=== PATIENT | female | born 1945 | race Caucasian/White ===

== ENCOUNTER 2024-01-30 09:17 | Emergency (ER) | payer MEDICARE, SELFPAY ==
[2024-01-30 09:20] VITALS: BP 172/70
--- NOTE | 2024-01-30 10:53 | ED.GENMED ---
History of Present Illness
General
Chief Complaint: Dizziness
Source: patient and spouse
Time Seen by Provider: 01/30/24 10:38
Travel History
Have you had any contact with someone who has COVID-19?: No
Do you have any symptoms of coronavirus? Fever > 100 degrees, chills, cough, shortness of breath, sore throat, loss of taste or smell, muscle aches, or headache?: No
History of Present Illness
History of Present Illness:
This patient is a 78-year-old female presents emergency department after an episode that started yesterday afternoon. She describes sitting down on the bed and experiencing a dizzy spell described as 'spinning' lasting about 3 to 4 minutes and then
resolving completely. She felt a little diaphoretic with this, but otherwise no associated symptoms. Then, shortly after, she noted that the left mid face area felt 'strange'. She says she can still feel in that area but it just feels different
leg decreased sensation. This continues today which prompted her visit here. She denies associated headache, double vision, blurry vision, change in vision, clumsiness, chest pain, shortness of breath, abdominal pain, nausea, vomiting, focal
weakness, difficulty walking, or other complaints. Of note, as patient was exiting the car to come to the emergency department she again had a short-lived episode of dizziness. The 'strange' sensation in the left mid face persists
Past History
Past History
ED Past Medical History: Other (Kidney stones)
ED Past Surgical History: Appendectomy
Social History
Tobacco: Non-smoker
Alcohol: Occasional
Drug: None
Personal:
Living: with family
Phy Exam
Physical Exam
Physical Exam:
GENERAL: Alert , in no apparent distress
EYE: pupils equal and reactive, no photophobia, no nystagmus, EOMI, visual tavares intact
NECK: Supple, no significant adenopathy.
ENT: o/p clr, mmm.
CARDIAC: Regular rate and rhythm .
LUNGS: Clear breath sounds bilaterally, no acute respiratory distress, no wheezes/rales/rhonchi
ABDOMEN: Soft, without focal tenderness, no r/g, no cvat
NEUROLOGICAL: Alert and oriented, no focal neuro deficits, gait normal, [id number]-[id number] normal, motor 5 out of 5, sensory intact to light touch
SKIN: Warm and dry, skin intact.
MUSCULOSKELETAL: No edema, well perfused.
PSYCH: Normal and appropriate interaction.
Course
Orders/Labs/Results
Orders:
Orders
01/30/24 10:52
Electrocardiogram (*1) Stat
Reason for Study: Other
Other Reason for Exam: neuro symptoms
Cardiac Monitoring- Treatment ONCE
EKG- Treatment ONCE
01/30/24 11:22
Cardiovascular Evaluation Urgent
Complete Blood Count/No Diff Urgent
Comprehensive Metabolic Panel Urgent
Ferritin Urgent
Comment: ADD ON
Folate Urgent
Comment: ADD ON
Glycohemoglobin (HgbA1c) Urgent
TSH Reflex To Free T4 Urgent
Comment: ADD ON
Vitamin B12 Urgent
Comment: ADD ON
01/30/24 11:31
Add On- LAB Routine
Tests Added?: folate, ferritin, TSH reflex, B12, lipid panel, hbA1c
01/30/24 11:47
[facility] [place] [facility] Urgent
Reason For Exam: vertigo
Recent pill cam endoscopy?: No
MRI Brain [MR Brain Without Contrast] Urgent
Comment:
Reason For Exam: vertigo
Recent pill cam endoscopy?: No
01/30/24 12:47
Aspirin 325 mg PO NOW STA
Abnormal Lab Results
01/30/24
11:22
MCHC 32.3 L g/dL
(33.0-37.0)
MPV 11.0 H fL
(7.4-10.4)
BUN 25 H mg/dl
(7-17)
Total Cholesterol 290 H mg/dl
(50-199)
01/30/24 11:22
01/30/24 11:22
Vital Signs
Initial and Last Documented VS:
Initial Vital Signs
Temp Pulse Resp BP Pulse Ox
97.7 F 94 18 172/70 100
01/30/24 09:20 01/30/24 09:20 01/30/24 09:20 01/30/24 09:20 01/30/24 09:20
Last Documented Vital Signs
Temp Pulse Resp BP Pulse Ox
97.7 F 69 15 138/62 100
01/30/24 09:20 01/30/24 12:45 01/30/24 12:45 01/30/24 12:00 01/30/24 11:30
*Critical Care Note
Total Time (30-74mins, 75-104mins- exclusive of procedures): Not Applicable
Update Note
Update Note:
Patient presents to the Emergency Department with ____dizziness and strange feeling of mid face area
Number and Complexity of Problems Addressed at the Encounter
� Chronic conditions affecting care:
� Acute Exacerbation and/or Progression of Chronic Illness:
� Differential Diagnosis includes: But not limited to TIA, CVA, electrolyte disturbance, etc.
Amount and/or Complexity of Data to be Reviewed and Analyzed
� I performed an independent evaluation of and my interpretation is:
EKG: Read by me, normal sinus rhythm, LAD, no acute ischemia
CT: Deferred/canceled as we are now ordering an MRI
Xrays:
Laboratory Studies: Generally unremarkable
Other:There is no acute intracranial process.
Age-appropriate mild volume loss and mild leukoaraiosis.
Please see accompanying MRA report.
Disc bulging at C4-5 and C5-6 abuts the ventral surface of the cord. Consider nonurgent cervical spine MRI to evaluate for any cord compression or nerve root impingement.
Thea Tavares
ID [id number]
Approximately 50% stenosis of the horizontal portion of the left ICA proximally, at the turn from the cervical ICA, asymmetric from the right.
No other focal stenosis or aneurysm. No filling defect Brain MRI (-) acute
� Review of other/old records reveals:
� Clinical information was obtained by an independent historian:
� Prescriptions/Medications Considered but not given:
� Further testing considered but not performed:
Risk of Complications and/or Morbidity or Mortality of Patient Management
� Social determinants of health affecting care:
� Discussion with other providers (PCP, Hospitalists, Consultants, etc):
� Escalation of care including admission/observation vs risk of discharge considered: Patient seen by Dr. Welsh in consult at my request, he agrees with my concerns and recommends an MRI to further assess particularly posterior
circulation. Patient remained stable, is obviously not a IAT/TNK candidate given NIH score, time of onset, etc. I initially discussed with hospitalist for admission/continued observation pending MRI, but fortunately they were able to accommodate
patient and get an MRI. See report as above. As per neurology, patient not a candidate for admission/observation or chronic aspirin therapy, recommends outpatient vestibular PT and follow-up. Given the 50% ICA occlusion noted, I also recommended
follow-up with vascular although on a more routine basis as it is not an urgency. Long discussion with patient and , aware of importance of follow-up and reasons return to the ER.
ED Attending Note
-
Portions of this chart may have been created with voice recognition software.� Occasional wrong word or��sound alike� substitutions may have occurred due to the inherent limitations of voice recognition software.
Discharge Plan
Departure
Patient Disposition: Home (Routine Discharge)
Date of Disposition: 01/30/24
Time of Disposition: 12:47
Patient with high blood pressure during this ER visit?: Yes
Condition: Good
Discharge Problem:
Vertigo
Instructions: Vertigo (a Type of Dizziness) (DC), BLOOD PRESSURE
Prescriptions:
No Action
No Current Medications
0
Referrals:
Monroe Calero III, MD [Active] - Next open appointment
NONE,* [Family Provider] -
Activity Restrictions/Additional Instructions:
PLEASE CALL [phone] (VESTIBULAR PHYSICAL THERAPY) FOR FOLLOW UP IF YOU DEVELOP INCREASING/NEW DIZZINESS, ANY NEW NUMBNESS, WEAKNESS, CLUMSINESS, TROUBLE WALKING, CHANGE IN SPEECH, FEVER, REPEATED VOMITING, OR OTHER WORRISOME SIGNS, GO TO THE
ER IMMEDIATELY! YOU HAVE ABNORMALITIES ON YOUR MRI SCAN THAT REQUIRE CLOSE FOLLOW UP. PLEASE CONTACT YOUR PRIMARY CARE DOCTOR TO ARRANGE FOR THAT..
Interventions
Interventions:
*Risk Screen - Suicide Last Done: 01/30/24 12:25
*General Assessment Last Done: 01/30/24 12:25
*Neglect/Abuse Screening Last Done: 01/30/24 12:25
ED- Fall Risk Assessment Last Done: 01/30/24 12:25
*Nursing Disposition Last Done: 01/30/24 16:28
ED- Neurological Assessment Last Done: 01/30/24 12:25
ED- Cardiac Assessment Last Done: 01/30/24 11:27
ED Swallowing Screen Last Done: 01/30/24 11:30
Discharge Date and Time
Discharge Date/Time: 01/30/24 16:29
Print Language: WOLOF
--- NOTE | 2024-01-30 11:21 | CON.NEURO4 ---
Addendum entered and electronically signed by Isaac Welsh MD 01/30/24 16:04:
MRI brain reviewed and MRA head reviewed no abnormality seen. I am not able to appreciate even a subtle abnormality in the brainstem which can sometimes have easily missed strokes even on MRI brain.
Would estimate that this is a benign cause of her dizziness spell and facial numbness either peripheral vertigo, sinus or eustachian tube dysfunction or migraine aura without headache.
With no acute stroke or chronic strokes seen on the brain MRI I do not see any strong indication for chronic antiplatelet therapy
Outpatient physical therapy will probably be helpful, otherwise would reassure her that the brain MRI has not shown any worrisome cause for her symptoms.
Addendum entered and electronically signed by Isaac Welsh MD 01/30/24 12:46:
Differential diagnosis: Minor ischemic stroke on right-sided subcortical area, left medulla, or right yamile. Migraine aura equivalent, peripheral vertigo episode, sinusitis/eustachian tube dysfunction.
Addendum entered and electronically signed by Isaac Welsh MD 01/30/24 12:19:
The patient is a 78-year-old right-handed woman with with no significant past medical history presents to the hospital with short episode of vertigo yesterday afternoon along with left facial numbness that started around that same time and has
persisted into today.
Patient has been in her normal state of health recently and was sitting down at home in the afternoon watching TV when she had acute onset of a dizziness feeling lasting around 3 to 4 minutes mostly resolving after this time, around that time she
noticed a subtle feeling of numbness in the left face beneath the eye not involving the forehead and a bit of a unusual feeling in the left eye. The numbness has persisted into today but she was able to function and do okay for the rest of
yesterday. There is no vomiting or headache double vision dysarthria or unilateral weakness or paresthesia of the limbs and she was able to walk. This morning they have been planning on a long drive to [place] but she noted that her balance did not
seem quite normal leading her to present to the ER.
She relates she did have an episode of short lasting dizziness last year for which she had ER evaluation and had CT head noncontrast at that time which was unremarkable, she did not have any facial paresthesia at that time.
Is any history of headaches with photophobia vision change nausea or vomiting or any headaches that led her to lay down into a dark room. No recent tinnitus or hearing loss.
Neurologic examination
Normal mental status
Cranial nerves are normal, no nystagmus seen on any extraocular movements and normal head impulse test, no skew of the eyes. To light touch she has symmetric sensation on the face in V1�V3 bilateral
Motor examination shows no abnormal movements no pronator drift no fix power 5/5 for shoulder abduction hip flexion
Intact to light touch in upper and lower EXTR extended
Reflexes 2+ and symmetric biceps triceps brachialis patella and Achilles
Normal finger-nose testing bilaterally
Patient is able to sit upright unassisted with no ataxia and she stands with a somewhat careful and narrow gait with no wide-based or ataxia Romberg was negative, marching in place she has no turning in any 1 direction.
Breckenridge-Hallpike maneuver was negative
Assessment: Sudden onset vertigo with left facial paresthesia and feeling of imbalance. Left facial paresthesia has persisted and still has a sense of minimal imbalance when walking.
Differential diagnosis: Minor ischemic stroke on right-sided subcortical area, left medulla, or right yamile
Recommendations
-Check brain MRI and MRA of the head without contrast if possible in the ER
-If unable to obtain in ER would give aspirin 325 and plan for admission for MRI studies
Original Note:
Consultation - Neurology 4
-
CONSULTING PHYSICIAN: Angy Welsh MD
REFERRING PHYSICIAN: ER/Dr. Calero
DICTATED BY: BRIA Plaza
DATE/TIME OF REQUEST: 01/30/24
DATE/TIME OF CONSULTATION: 01/30/24
Reason for Consultation: Vertigo and left facial numbness
History of Present Illness:
This is a 78-year-old female who has presented to the hospital with report of vertigo and left facial numbness. Patient reports feeling in her usual state yesterday afternoon (01/29/24) she was sitting still in her bed watching TV when she suddenly
developing a spinning sensation. The dizziness resolved after 3-4 minutes, but she then reports noticing that her left face from her forehead to her left cheek felt numb and her left eye wasn't painful but felt strange. This morning (01/30/24), she
denies any further dizziness but reports feeling 'off' and her left face sensation change is persisting, prompting her to come to the ER for evaluation. She denies any headache, vision changes, hearing changes, ear fullness, speech/swallow
difficulty, weakness, numbness in her arms or legs, vomiting, chest pain, palpitations, and shortness of breath. She reports chronic intermittent bilateral tinnitus for the past 15 years. She reports one previous episode of vertigo associated with a
spinning sensation lasting several minutes in August 2023. She was evaluated here at that time and CT head was normal. That event was associated with constipation but no numbness. She denies any history of TIA, stroke, recent illness, or events
like this in the past. She is not taking any blood-thinning medications.
Past Medical History: Renal calculi.
Surgical History: Appendectomy.
Family History: Reviewed and noncontributory.
Social History: Denies tobacco, alcohol, and illicit drug use.
Allergies: Morphine, acetaminophen.
Home Medications: None.
Review of Symptoms:
Patient denies any fever, headache, chest pain, shortness of breath, GI or symptoms.
�Per the HPI.�All systems are reviewed negative except above.
Physical Exam:
The patient is afebrile, abdomen is nondistended, breathing is unlabored, skin is warm and dry, no edema.
NIH Stroke Scale:
I performed the NIH stroke scale on the patient on 01/30/24 at 1130. The patient scored 0 points on the NIH stroke scale assessment, which were assigned as follows: See below.
Neurologic Examination:
The patient is awake, alert and oriented x 3. She is able to follow commands and answer questions appropriately. There is no aphasia or dysarthria. On cranial nerve assessment, pupils are 3 mm bilateral, round and reactive to light and
accommodation. Visual tavares are full. Extraocular movements are intact. Facial sensations are intact and bilaterally symmetrical, there is no facial asymmetry. Hearing is intact bilaterally to normal conversation volume. Tongue palate and uvula are
midline. Sternocleidomastoid strengths are full bilaterally. Motor strengths are 5/5 bilateral upper and lower extremities on medical research [place] scale. There is no drift or involuntary movement noted. Deep tendon reflexes are 2+ bilateral
upper and lower extremities and Babinski is absent bilaterally. Sensations of touch is intact and bilaterally symmetrical. There was no extinction noted on double simultaneous stimulation. Coordination is intact by finger to nose bilaterally. Gait
is steady. Romberg negative. Negative HINTS exam and Kiya Hallpike.
Lab Results: See below.
Neuro Imaging:
None
Differentials for the patient's presentation include:
1. Concern for small stroke producing facial numbness.
2. Peripheral vertigo possibly producing transient dizziness but no findings on exam supportive of this.
Patient has the following risk factors for their symptoms: None
IV Tenecteplase/IAT candidacy: She is not a candidate for TNK/IAT due to NIHSS 0, unclear diagnosis.
Recommendations:
-MRI brain noncontrast ordered/pending.
-PT evaluation.
-Provide patient with a stroke education packet.
-NIHSS and neurological checks per unit guidelines.
-If MRI brain demonstrates a stroke, LDL goal will be <70. Lipid panel pending.
-Goal normoglycemia, hbA1c pending.
-Will follow pending results.
Discussed patient care with: Dr. Welsh, the patient, patient's spouse
Vital Signs and Labs
-
Vital Signs and Labs:
Vital Signs
Temp Pulse Resp BP Pulse Ox
97.7 F 94 18 172/70 100
01/30/24 09:20 01/30/24 09:20 01/30/24 09:20 01/30/24 09:20 01/30/24 09:20
Lab Results
01/30/24 11:22
01/30/24 11:22
Sodium 138 mmol/L (135-145) 01/30/24 11:22
Potassium 4.2 mmol/L (3.5-5.1) 01/30/24 11:22
BUN 25 mg/dl (7-17) H 01/30/24 11:22
Glucose 92 mg/dl (70-99) 01/30/24 11:22
Calcium 9.6 mg/dl (8.4-10.2) 01/30/24 11:22
Medications
-
Home Medications
�Medication �Instructions �Recorded
No Meds [No Current Medications] 08/23/23
NIH Stroke Score
Subsequent NIH Scale
Date of Subsequent NIH Scale: 01/30/24
Time of Subsequent NIH Scale: 11:30
NIH Stroke Score
Level of Consciousness: 0 - Alert
LOC Commands: 0-Performs both correctly
Best Horizontal Gaze: 0-Normal
Visual Tavares: 0=Normal, no visual loss
Facial Palsy: 0=Normal, symmetrical
Motor - Right Arm: 0=No drift 10 seconds
Motor - Left Arm: 0=No drift 10 seconds
Motor - Right Le-No drift 5 seconds
Motor - Left Le-No drift 5 seconds
Limb Ataxia: 0-Absent
Sensation: 0-Normal
Best Language: 0-No aphasia
Dysarthria: 0-Normal
Extinction and Inattention: 0-No abnormality
[2024-01-30 11:39] LABS: Hemoglobin 12.9 g/dL (12.0-16.0); Mean Corp Hgb Conc. 32.3 g/dL (33.0-37.0); Platelet Count 201 10^3/uL (130-400); Potassium 4.2 mmol/L (3.5-5.1); Red Cell Dist. Width 12.4 % (11.5-14.5); White Blood Cell Count 8.5 10^3/uL (4.8-10.8)
[2024-01-30 11:40] LABS: ALT (SGPT) 22 U/L (0-35); AST (SGOT) 25 U/L (14-36); Albumin 4.4 g/dl (3.5-5.0); Alkaline Phosphatase 63 U/L (38-126); Blood Urea Nitrogen 25 mg/dl (7-17); Calcium 9.6 mg/dl (8.4-10.2); Carbon Dioxide 25 mmol/L (22-30); Chloride 107 mmol/L (98-107); Glucose 92 mg/dl (70-99); Sodium 138 mmol/L (135-145); Total Bilirubin 0.5 mg/dl (0.2-1.3); Total Protein 7.6 g/dl (6.3-8.2); eGFR > 60.00
[2024-01-30 11:56] LABS: HDL Cholesterol 68 mg/dl; LDL Cholesterol, Calculated 204 mg/dl; Total Cholesterol 290 mg/dl (50-199); Triglyceride 92 mg/dl (10-149); Very Low Density Lipoprotein 18 mg/dl (0-30)
[2024-01-30 12:00] VITALS: BP 138/62
[2024-01-30 12:20] LABS: Glycohemoglobin (HgbA1c) 5.3 % (4.0-5.6)
[2024-01-30] MEDS: ASPIRIN 325 MG PO (12:55)
[2024-01-30 13:20] LABS: Vitamin B12 297 pg/ml (239-931)
== END 2024-01-30 16:29 | disposition home or self-care (01) ==
LOC: EMR 09:17
PROVIDERS: EMERGENCY PHYSICIAN Emergency Medicine
DX: R42 Dizziness and giddiness (principal); Z88.5 Allergy status to narcotic agent; Z90.49 Acquired absence of other specified parts of digestive tract
CPT/HCPCS: 99283; 70544; 70551; 80053; 80061; 82607; 82728; 82746; 83036; 84443; 85027; 93005